=== PATIENT | female | born 1985 | race Caucasian/White ===

== ENCOUNTER 2020-07-22 08:22 | Outpatient (REF) | payer OTHER, SELFPAY | END 2020-07-22 08:23 | disposition home or self-care (01) | LOC: HO.LAB 08:22 | PROVIDERS: PCP Family Medicine; Visit Provider Internal Medicine | DX: Z20.828 Contact with and (suspected) exposure to other viral communicable diseases (principal) | CPT/HCPCS: 87635 ==

== ENCOUNTER 2020-11-18 01:14 | Emergency (ER) | payer OTHER, SELFPAY ==
[2020-11-18 01:27] VITALS: PULSE 63; RESP 16; TEMP 36.9; O2SAT 98; BMI 27.1
--- NOTE | 2020-11-18 01:27 | ED_ITS ---
HPI - Headache General Chief Complaint: Headache Stated Complaint: MIGRAINE/HIGH BP Time Seen by Provider: 11/18/20 01:22 Source: patient Mode of arrival: ambulatory Limitations: no limitations History of Present Illness HPI Narrative: 35 yo female with hx of migraines not on AC therapy gradual onset L sided throbbing headache onset at rest associated photophobia and nausea - not responding to pamprin just started her menses as well , came in due to worsenign pain as well as BP in 130/150s MD elicited complaint: migraine Pertinent past history: migraines Onset (ago): hour(s) (8) Onset description: gradually and while at rest Location: left and temporal Severity: severe Quality & Timing: throbbing and progressively worsening Exacerbating factors: light and noise Relieving factors: nothing Context: occurred at rest Associated symptoms: nausea and photophobia Treatments prior to arrival: acetaminophen Related Data Previous Rx's Medication Instructions Recorded [id number]-[id number] 1 tab PO Q6H PRN #20 tab 11/18/20 cyclobenzaprine 10 mg PO TID PRN #14 tab 11/18/20 ondansetron 4 mg PO Q8H PRN #20 tab 11/18/20 Allergies Allergy/AdvReac Type Severity Reaction Status Date / Time No Known Allergies Allergy Unverified 06/25/20 18:38 Review of Systems Review of Systems: Constitutional : No Fever, No Chills, No Fatigue ENT/Mouth : No sore throat, No Rhinorrhea Eyes: pos Eye Pain, No Swelling, No Redness Cardiovascular : No Chest Pain, No SOB, No Dyspnea on Exertion Respiratory : No Cough, No Sputum Gastrointestinal : pos Nausea, No Vomiting, No Diarrhea, No abdominal Pain Genitourinary : No Dysuria, No Urinary Frequency, No Hematuria, Musculoskeletal : No joint pain, No Myalgias, No Joint Swelling Skin : No Skin Lesions, No rash Neuro : No Weakness, No Numbness, No Dizziness, positive Headache Psych : No Anxiety/Panic, No Depression Heme/Lymph: No Bruising, No Bleeding,No Lymphadenopathy Endocrine : No Polyuria, No Polydipsia All other systems reviewed and are negative [facility] Past Medical History Attestation statement: The following information was validated with the patient. Medical History Migraines Social History Social History (Updated 11/18/20 @ 01:34 by Mackenzie Chavez DO) Use of substances other than those prescribed or required for medical reasons: No Advance Directives: No Advance Directives Information Provided: No Physical Exam Vital Signs: Vital Signs: Last Vital Signs Temp 98.4 F 11/18/20 01:27 Pulse 63 11/18/20 01:27 Resp 16 11/18/20 01:27 Pulse Ox 98 11/18/20 01:27 Body Mass Index 27.1 Appearance: Alert. Oriented X3. No acute distress. Eyes: Pupils equal, round and reactive to light. + photophobia ENT: Pharynx normal. Neck: Normal inspection. Neck supple. no meningeal signs CVS: Normal heart rate and rhythm. Pulses normal. Respiratory: No respiratory distress. Breath sounds normal. Abdomen: Soft and nontender. Skin: Skin warm and dry. Normal skin color. Normal skin turgor. Extremities: No lower extremity edema. No calf ttp Neuro: Oriented X 3. No motor deficit. No sensory deficit. steady gait Course Course Course Narrative: patient feels better, stable for DC MDM - Headache MDM Narrative Medical decision making narrative: 35 yo female with hx of migraines, just started her menses c/o gradual onset L sided throbbing headache not responding to OTC medications - it has progressively worsened over the day, BP was elevated (likely due to pain) she is not on AC therapy, no focal deficits, she has no fevers - given presentation I doubt SAH and [employer] infection - will treat with IV medications and reassess. Discharge Plan Discharge Clinical Impression: Migraine Qualifiers: Migraine type: without aura Status migrainosus presence: without status migrainosus Intractability: not intractable Qualified Code(s): G43.009 - Migraine without aura, not intractable, without status migrainosus Patient Disposition: Home, Self-Care Instructions: Migraine Headache (ED) Additional Instructions: return to ED for any worsening symptoms or concerns Prescriptions: New cyclobenzaprine 10 mg tablet 10 mg PO TID PRN (Reason: muscle spasm) Qty: 14 RF: 0 hpbdgrbzug-lkzxdgggtbuoj-wtng 50-325-40 mg tablet 1 tab PO Q6H PRN (Reason: pain) Qty: 20 RF: 0 ondansetron 4 mg tablet,disintegrating 4 mg PO Q8H PRN (Reason: nausea and vomiting) Qty: 20 RF: 0 Stand Alone Forms: Work/School Release
[2020-11-18] MEDS: diphenhydrAMINE HCL 50 MG/ML VIAL 25 MG IVPUSH (01:47)
[2020-11-18] MEDS: Ketorolac Tromethamine 30 MG/ML VIAL IVPUSH (01:47)
[2020-11-18] MEDS: Metoclopramide HCl 10 MG/2 ML VIAL IVPUSH (01:49)
[2020-11-18] MEDS: 0.9 % Sodium Chloride 1,000 ML 999 ML IVCONT (01:51)
--- NOTE | 2020-11-18 03:04 | PC.NURSE ---
PT RESTING IN STRETCHER IN NAD.
== END 2020-11-18 03:58 | disposition home or self-care (01) ==
LOC: HO.ED 01:52
PROVIDERS: Emergency Provider Emergency Medicine
DX: G43.009 Migraine without aura, not intractable, without status migrainosus (principal)
CPT/HCPCS: 96361; 96374; 96375; 99283; 99284; J1200; J1885; J2765